=== PATIENT | male | born 1955 | race Caucasian/White ===

== ENCOUNTER 2020-07-16 12:06 | Emergency (ER) | payer OTHER ==
[2020-07-16 12:21] VITALS: BP 170/132
[2020-07-16 13:12] LABS: APPEARANCE,URINE CLEAR; BILIRUBIN,URINE NEGATIVE (NEGATIVE); COLOR,URINE YELLOW; GLUCOSE, URINE NEGATIVE (NEGATIVE); HEMATOCRIT 37.7 % (37.9-51.0); HEMOGLOBIN 13.1 g/dL (13.5-17.0); KETONES,URINE NEGATIVE (NEGATIVE); LEUKOCYTE ESTERASE,URINE NEGATIVE (NEGATIVE); MEAN CORPUSCULAR HEMOGLOBIN 30.8 pg (27.0-33.4); MEAN CORPUSCULAR HGB CONC 34.9 g/dL (32.0-36.0); MEAN CORPUSCULAR VOLUME 88 fl (80-97); NITRITE,URINE NEGATIVE (NEGATIVE); PROTEIN,URINE 30 mg/dL (NEGATIVE); RED BLOOD COUNT 4.27 10^6/uL (4.35-5.55); URINE SPECIFIC GRAVITY 1.021; UROBILINOGEN,URINE NEGATIVE mg/dL (<2.0)
[2020-07-16 13:27] LABS: ALBUMIN 4.1 g/dL (3.5-5.0); ALKALINE PHOSPHATASE 111 U/L (38-126); ANION GAP 8 (5-19); ASPARTATE AMINO TRANSFERASE 37 U/L (17-59); BILIRUBIN,DIRECT 0.3 mg/dL (0.0-0.4); BILIRUBIN,TOTAL 0.8 mg/dL (0.2-1.3); BLOOD UREA NITROGEN 22 mg/dL (7-20); CALCIUM 8.8 mg/dL (8.4-10.2); CARBON DIOXIDE 26 mmol/L (22-30); CHLORIDE 105 mmol/L (98-107); GLUCOSE 85 mg/dL (75-110); POTASSIUM 4.3 mmol/L (3.6-5.0); TOTAL PROTEIN 6.8 g/dL (6.3-8.2)
--- NOTE | 2020-07-16 13:55 | RADIOLOGY REPORT (SQ) ---
EXAM DESCRIPTION: CHEST SINGLE VIEW IMAGES COMPLETED DATE/TIME: 07/16/2020 1:41 pm REASON FOR STUDY: shortness of breath COMPARISON: None. EXAM PARAMETERS: NUMBER OF VIEWS: One view. TECHNIQUE: Single frontal radiographic view of the chest acquired. RADIATION DOSE: NA LIMITATIONS: None. FINDINGS: LUNGS AND PLEURA: No opacities, masses or pneumothorax. No pleural effusion. MEDIASTINUM AND HILAR STRUCTURES: No masses. Contour normal. HEART AND VASCULAR STRUCTURES: Heart normal in size. Normal vasculature. BONES: No acute findings. Degenerative changes in the spine. HARDWARE: None in the chest. OTHER: No other significant finding. IMPRESSION: NO ACUTE RADIOGRAPHIC FINDING IN THE CHEST. TECHNICAL DOCUMENTATION: JOB ID: [id number] 2010 [employer]- All Rights Reserved Reading location - IP/workstation name: [email or web address]
[2020-07-16 14:05] LABS: PLATELET COUNT 50 10^3/uL (150-450)
[2020-07-16 14:06] LABS: ABSOLUTE LYMPHOCYTES# (MANUAL) 1.8 10^3/uL (0.5-4.7); ABSOLUTE MONOCYTES # (MANUAL) 5.2 10^3/uL (0.1-1.4); ANISOCYTOSIS SLIGHT; BAND NEUTROPHILS % (MANUAL) 1 % (3-5); BASOPHILS % (MANUAL) 0 % (0-2); EOSINOPHILS % (MANUAL) 0 % (0-6); LYMPHOCYTES % (MANUAL) 6 % (13-45); METAMYELOCYTES % (MANUAL) 2 % (0-1); MONOCYTES % (MANUAL) 17 % (3-13); PLATELET COMMENT DECREASED; POLYCHROMASIA 1+; SEGMENTED NEUTROPHILS % (MAN) 74 % (42-78); TOTAL CELLS COUNTED 100; TOXIC GRANULATION SLIGHT; TOXIC VACUOLATION PRESENT
[2020-07-16 14:07] LABS: WHITE BLOOD COUNT 30.7 10^3/uL (4.0-10.5)
[2020-07-16 14:19] LABS: TROPONIN I 0.017 ng/mL
[2020-07-16] MEDS ORDERED: PREDNISONE 20 MG TABLET PO ONE (14:31)
--- NOTE | 2020-07-16 14:31 | ER Document Report ---
ED General - General Chief Complaint: Shortness Of Breath Stated Complaint: SHORT OF BREATH,COUGH Time Seen by Provider: 07/16/20 13:37 Notes: HPI: Patient is a 65-year-old male with past medical history as recorded including COPD not on home oxygen as well as "a blood disorder" that he is not able to specify. Patient states for 2 to 3 days he has had some runny nose, congestion, and cough. No fevers, chest pain, calf pain, leg swelling. No recent trips or travel. He has not used any inhalers. ROS: See HPI All other review of systems reviewed and otherwise negative Reviewed vital signs and nursing note as charted by RN. PHYSICAL EXAM: CONSTITUTIONAL: Alert and oriented and responds appropriately to questions. Well-appearing; well-nourished HEAD: Normocephalic; atraumatic EYES: PERRL; Conjunctivae clear, sclerae non-icteric ENT: Normal nose; minimal bilateral nasal rhinorrhea; moist mucous membranes; pharynx without lesions noted NECK: Supple without meningismus; non-tender; no cervical lymphadenopathy, no masses CARD: Regular rate and rhythm; no murmurs; symmetric distal pulses RESP: Normal chest excursion without splinting or tachypnea; breath sounds clear and equal bilaterally; bilateral expiratory minimal wheezing without rhonchi or rales ABD/GI: Normal bowel sounds; non-distended; soft, non-tender BACK: The back appears normal and is non-tender to palpation EXT: Normal ROM in all joints; non-tender to palpation; no edema SKIN: No acute lesions noted NEURO: CN 2-12 intact; 5/5 bilateral upper and lower extremity strength with sensation intact to light touch PSYCH: The patient's mood and manner are appropriate. Grooming and personal hygiene are appropriate. - Related Data Allergies/Adverse Reactions: No Known Allergies Allergy (Unverified 07/16/20 13:36) Home Medications: Metoprolol. Synthroid. Prednisone Past Medical History - Social History Smoking Status: Former Smoker Chew tobacco use (# tins/day): No Frequency of alcohol use: None Drug Abuse: None Family History: Reviewed & Not Pertinent - Past Medical History Cardiac Medical History: Reports: Hx Hypercholesterolemia, Hx Hypertension Past Surgical History: Reports: Hx Cardiac Catheterization - stent, Hx Orthopedic Surgery - right shoulder Physical Exam - Vital signs Vitals: Temp Pulse Resp BP Pulse Ox 97.5 F 70 32 H 170/132 H 98 07/16/20 12:19 07/16/20 12:19 07/16/20 12:19 07/16/20 12:19 07/16/20 12:19 Course - Re-evaluation Re-evalutation: Given the above history and physical, we will obtain basic labs, EKG, cardiac labs, coronavirus testing, and reassess. Patient denies any and all chest or abdominal pain. Patient has been afebrile. Patient does have some minimal wheezing so I will provide a duo nebulizer and a dose of steroids. 07/16/20 14:31 Labs as recorded. Barely elevated white blood cell count. No old laboratory results here at this facility. 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 He states that he has had "low platelets" and they are trying to increase his platelet count with steroids. X-ray of the chest as recorded. 07/16/20 16:02 EKG shows a heart of 63, normal sinus rhythm, normal axis, no ST elevation or depression. Wheezing has improved. X-ray of the chest shows no obvious infiltrate. Cover test has been ordered. 07/16/20 16:39 I have spoken to the local oncologist here as well as the oncologist at the [facility] location. They state that the patient is being treated for ITP. They state that the elevated white blood cell count with a neutrophil shift is oftentimes normal with the prednisone. Patient's wheezing is much improved. Satting 100% on room air. He denies any shortness of breath at this time. We did order a repeat troponin which is currently pending. 07/16/20 18:35 Patient's lungs are still clear. He is feeling much better. We have provided an albuterol inhaler. I did speak directly [place] [facility] [place] has excellent follow-up. D-dimer is recorded. Repeat troponin is recorded. I will provide a course of doxycycline and inhalation instructions. - Vital Signs Vital signs: Temp Pulse Resp BP Pulse Ox 97.5 F 70 32 H 170/132 H 98 07/16/20 12:19 07/16/20 12:19 07/16/20 12:19 07/16/20 12:19 07/16/20 12:19 - Laboratory Result Diagrams: 07/16/20 12:55 07/16/20 12:55 Laboratory results interpreted by me: 07/16/20 07/16/20 07/16/20 12:55 12:55 12:55 WBC 30.7 H* RBC 4.27 L Hgb 13.1 L Hct 37.7 L RDW 15.0 H Plt Count 50 L Band Neutrophils % 1 L Lymphocytes % (Manual) 6 L Monocytes % (Manual) 17 H Metamyelocytes % 2 H Abs Neuts (Manual) 23.6 H Abs Monocytes (Manual) 5.2 H BUN 22 H Creatinine 1.40 H Est GFR (MDRD) Non-Af 51 L NT-Pro-B Natriuret Pep Urine Protein 30 H Urine Ascorbic Acid 40 H 07/16/20 12:55 WBC RBC Hgb Hct RDW Plt Count Band Neutrophils % Lymphocytes % (Manual) Monocytes % (Manual) Metamyelocytes % Abs Neuts (Manual) Abs Monocytes (Manual) BUN Creatinine Est GFR (MDRD) Non-Af NT-Pro-B Natriuret Pep 471 H Urine Protein Urine Ascorbic Acid Discharge - Discharge Clinical Impression: Nasal congestion, Cough, Wheezing Leukocytosis Qualifiers: Leukocytosis type: unspecified Qualified Code(s): D72.829 - Elevated white blood cell count, unspecified Condition: Good Disposition: HOME, SELF-CARE Additional Instructions: Come back immediately for any worsening cough, shortness of breath, chest pain, difficulty breathing or swallowing, or any other acute problems. Please make sure that you quarantine yourself until your coronavirus test has returned. Please take 2 puffs of the albuterol inhaler every 4 hours for the next 48 hours and every 6 hours as needed after that. Please follow-up with your primary care physician for further evaluation. Prescriptions: Doxycycline Hyclate 100 mg PO BID #20 tablet.
[2020-07-16] MEDS ORDERED: IPRATROPIUM/ALBUTEROL 0.5-2.5 MG/3 ML AMPUL NEB SCH (14:45)
[2020-07-16] MEDS ORDERED: DOXYCYCLINE HYCLATE 100 MG TABLET PO ONE (16:06)
[2020-07-16] MEDS ORDERED: ALBUTEROL SULFATE HFA (90 MCG/PUFF) 8 GM MDI (1 MDI/ER DISP) IH ONE (18:35)
--- NOTE | 2020-07-16 21:01 | EKG REPORT ---
SEVERITY:- NORMAL ECG - SINUS RHYTHM : Confirmed by: Greg Lewis MD 16-Jul-2020 21:01:10
[2020-07-18 15:33] LABS: PATH REVIEW PATHOLOGIST REVIEWED
== END 2020-07-16 19:08 | disposition home or self-care (01) ==
LOC: ER 12:06
DX: R09.81 Nasal congestion (principal); R05 Cough; R06.2 Wheezing; D72.829 Elevated white blood cell count, unspecified; R06.02 Shortness of breath; E78.00 Pure hypercholesterolemia, unspecified; I10 Essential (primary) hypertension; Z20.828 Contact with and (suspected) exposure to other viral communicable diseases
CPT/HCPCS: 93005; 94640; 99285; 36415; 85025; 87635; 80053; 81001; 84484; 85379; 83880; 71045; 93010; J7512; J3490; C9803